=== PATIENT | male | born 1955 | race African-American/Black ===

== ENCOUNTER 2019-11-16 09:32 | Emergency (ER) | payer OTHER ==
[~2019-11-16] VITALS: Ht 172.7 cm; Wt 68.0 kg
[2019-11-16 10:17] VITALS: BP 183/98
--- NOTE | 2019-11-16 10:54 | RAD ---
Right foot 3 views. HISTORY: Pain with weightbearing, swelling 3 views were taken of the right foot. There is not evidence of a fracture or bony destructive process or acute osseous abnormality. IMPRESSION: 1. No acute osseous abnormality noted in the right foot. Electronically signed by: Alex Villatoro MD (11/16/2019 10:51 AM) [id number]
--- NOTE | 2019-11-16 11:16 | PHYS DOC ---
Past Medical History Past Medical History: No Pertinent History Past Surgical History: No Surgical History Smoking Status: Current Every Day Smoker Alcohol Use: Heavy Additional Information: 2 beers per day General Adult EDM: Chief Complaint: FOOT INJURY PAIN HPI: HPI: Patient is a 64 year old male who presents with right heel pain reporting that he jumped off a tractor trailer flatbed and his right heel immediately started hurting. Patient states he has been unable to full weight-bear on to right heel since injury happened yesterday morning at approximately 10 AM. Patient states he wants to know if it is broken. Patient denies any other symptoms. Denies any back pain numbness or tingliness or radiation of his pain that is in his right heel. Patient denies any depression or anxiety, denies any homicidal suicidal ideation. Review of Systems: Review of Systems: Constitutional: Denies fever or chills. Eyes: Denies change in visual acuity. HENT: Denies nasal congestion or sore throat. Respiratory: Denies cough or shortness of breath. Cardiovascular: Denies chest pain or edema. GI: Denies abdominal pain, nausea, vomiting, bloody stools or diarrhea. : Denies dysuria. Musculoskeletal: Denies back pain or joint pain. Complains of pain to right heel. Integument: Denies rash. Neurologic: Denies headache, focal weakness or sensory changes. Endocrine: Denies polyuria or polydipsia. Lymphatic: Denies swollen glands. Psychiatric: Denies depression or anxiety. Heart Score: Risk Factors: Risk Factors: DM, Current or recent (<one month) smoker, HTN, HLP, family history of CAD, obesity. Risk Scores: Score 0 - 3: 2.5% MACE over next 6 weeks - Discharge Home Score 4 - 6: 20.3% MACE over next 6 weeks - Admit for Clinical Observation Score 7 - 10: 72.7% MACE over next 6 weeks - Early Invasive Strategies Allergies: Allergies: Allergies Coded Allergies Type Severity Reaction Last Updated Verified No Known Drug Allergies 11/16/19 No Physical Exam: PE: Constitutional: Well developed, well nourished, no acute distress, non-toxic appearance. [] HENT: Normocephalic, atraumatic, bilateral external ears normal, oropharynx moist, no oral exudates, nose normal. [] Eyes: PERRLA, EOMI, conjunctiva normal, no discharge. [] Neck: Normal range of motion, no tenderness, supple, no stridor. [] Cardiovascular:Heart rate regular rhythm, no murmur [] Lungs & Thorax: Bilateral breath sounds clear to auscultation [] Abdomen: Bowel sounds normal, soft, no tenderness, no masses, no pulsatile masses. [] Skin: Warm, dry, no erythema, no rash. [] Back: No tenderness, no CVA tenderness. [] Extremities: No tenderness, no cyanosis, no clubbing, ROM intact, no edema. Tenderness to palpation to right heel medial aspect. No swelling erythema or crepitus noted during exam. Neurologic: Alert and oriented X 3, normal motor function, normal sensory function, no focal deficits noted. [] Psychologic: Affect normal, judgement normal, mood normal. [] Current Patient Data: Vital Signs: Vital Signs Date Time Temp Pulse Resp B/P (MAP) Pulse Ox O2 Delivery O2 Flow Rate FiO2 11/16/19 10:17 98.6 91 16 183/98 (126) 97 Room Air 98.6 EKG: EKG: [] Radiology/Procedures: Radiology/Procedures: PROCEDURE: FOOT RIGHT 3V Right foot 3 views. HISTORY: Pain with weightbearing, swelling 3 views were taken of the right foot. There is not evidence of a fracture or bony destructive process or acute osseous abnormality. IMPRESSION: 1. No acute osseous abnormality noted in the right foot. Electronically signed by: Alex Jordan MD (11/16/2019 10:51 AM) [id number] DICTATED and SIGNED BY: ALEX JORDAN MD DATE: 11/16/19 1051 Course & Med Decision Making: Course & Med Decision Making Pertinent Labs and Imaging studies reviewed. (See chart for details) 4-year-old male presents to the ER after jumping off a tractor flatbed yesterday at approximately 10 AM injuring his right heel. Imaging was ordered non- concerning for acute fracture. Patient was given IM Toradol. Ice packs placed. Patient was given instructions for rice therapy and given crutches with instructions by nursing staff. Patient was discharged home with a work excuse for the next 2 days, patient is to use Rice therapy gave verbal understanding of this process. Gave verbal understanding of home medications. No further questions or concerns. Discharged home Dragon Disclaimer: Dragon Disclaimer: This electronic medical record was generated, in whole or in part, using a voice recognition dictation system. Departure Departure Impression: Primary Impression: Contusion of right heel Qualified Codes: S90.31XA - Contusion of right foot, initial encounter Disposition: HOME, SELF-CARE Condition: GOOD Referrals: LYNDON CARBAJAL MD (PCP) Patient Instructions: Contusion, Elastic Bandage and RICE Additional Instructions: Take medications as prescribed, apply ice to the sore foot while you are awake approximately 15 minutes on 15 minutes off, use Tyler wrap and crutches, return to the emergency department for worsening symptoms, see your doctor soon if symptoms are not resolving within the next few days. Scripts Ibuprofen (IBUPROFEN) 600 Mg Tablet 600 MG PO PRN Q6HRS PRN for INFLAMMATION, #20 TAB 0 Refills Prov: DEBORAH TAYLOR APRN 11/16/19 Tramadol Hcl (TRAMADOL HCL) 50 Mg Tablet 50 MG PO PRN Q4-6HRS PRN for PAIN, #14 TAB 0 Refills Prov: DEBORAH TAYLOR APRN 11/16/19 Justicifation of Admission Dx: Justifications for Admission: Justification of Admission Dx: N/A DEBORAH TAYLOR APRN Nov 16, 2019 11:16
[2019-11-16] MEDS ORDERED: TRAM50TA PO (11:25)
[2019-11-16] MEDS ORDERED: IBUP-1007 PO (11:25)
[2019-11-16] MEDS ORDERED: traMADol 50 MG TABLET ONE (11:28)
[2019-11-16] MEDS ORDERED: traMADol 50 MG TABLET PO ONE (11:30)
== END 2019-11-16 11:34 | disposition home or self-care (01) ==
LOC: ER 09:32
DX: S90.31XA Contusion of right foot, initial encounter (principal); F17.200 Nicotine dependence, unspecified, uncomplicated; F10.10 Alcohol abuse, uncomplicated; W17.89XA Other fall from one level to another, initial encounter; Y93.39 Activity, other involving climbing, rappelling and jumping off; Y92.89 Other specified places as the place of occurrence of the external cause; Y99.8 Other external cause status
CPT/HCPCS: 73630; 99283